=== PATIENT | female | born 1990 | race Caucasian/White ===

== ENCOUNTER 2018-04-22 06:25 | Day surgery (SDC) | payer OTHER ==
[2018-04-22] MEDS ORDERED: MIDAZOLAM 1 MG/ML 2 ML INJ (09:36)
[2018-04-22] MEDS ORDERED: GLYCOPYRROLATE 0.4 MG INJ ×2 (09:49→10:26)
[2018-04-22] MEDS ORDERED: ROCURONIUM 50 MG INJ (09:49)
[2018-04-22] MEDS ORDERED: LIDOCAINE 2% (SDV) 5 ML INJ (09:49)
[2018-04-22] MEDS ORDERED: NEOSTIGMINE 3 MG/3 ML SYRINGE (09:49)
[2018-04-22] MEDS ORDERED: SUCCINYLCHOLINE CHLORIDE 100 MG/5 ML SYG IV (09:49)
[2018-04-22] MEDS ORDERED: MEPERIDINE 100 MG INJ (09:49)
[2018-04-22] MEDS ORDERED: PROPOFOL 20 ML (09:49)
[2018-04-22] MEDS: METHYLENE BLUE 1% 10 ML INJ (10:14)
[2018-04-22] MEDS ORDERED: CEFAZOLIN 1 GM INJ (10:26)
[2018-04-22] MEDS ORDERED: ONDANSETRON 4 MG INJ (10:26)
[2018-04-22] MEDS ORDERED: hydrALAzine 20 MG INJ IV (10:30)
[2018-04-22] MEDS ORDERED: EPHEDrine SULFATE 50 MG/5 ML SYG IV (10:30)
[2018-04-22] MEDS ORDERED: FENTAnyl 50 MCG/ML VIAL IV ×3 (10:30)
[2018-04-22] MEDS ORDERED: ONDANSETRON 4 MG INJ IV (10:30)
[2018-04-22] MEDS ORDERED: MEPERIDINE 25 MG INJ IV (10:30)
[2018-04-22] MEDS ORDERED: LABETALOL HCL 20MG INJ IV (10:30)
[2018-04-22] MEDS ORDERED: OXYCODONE/ACETAMINOPHEN (5/325) TAB PO ×2 (10:30)
[2018-04-22] MEDS ORDERED: METOCLOPRAMIDE 10 MG INJ IV (10:30)
[2018-04-22] MEDS ORDERED: MIDAZOLAM 1 MG/ML 2 ML INJ IV (10:30)
[2018-04-22] MEDS ORDERED: HYDROmorphONE 1 MG/5 ML IV SYRINGE IV (10:30)
[2018-04-22] MEDS: HYDROmorphONE 1 MG/5 ML IV SYRINGE IV ×2 (10:51→11:04)
[2018-04-22] MEDS ORDERED: ACETAMINOPHEN 325 MG TAB PO (11:00)
[2018-04-22] MEDS: DIPHENHYDRAMINE 50 MG INJ IV (11:05)
[2018-04-22] MEDS ORDERED: HYDROCODONE/APAP (5/325) TAB (11:34)
[2018-04-22] MEDS: HYDROCODONE/APAP (5/325) TAB PO (11:43)
[2018-04-22] MEDS ORDERED: HYDROCODONE/APAP (5/325) TAB PO ×3 (12:30→16:30)
[2018-04-22] MEDS ORDERED: HYDROCODONE/APAP (10/325) TAB (12:45)
== END 2018-04-22 12:55 | disposition home or self-care (01) ==
LOC: SDS 06:25
DX: N94.6 Dysmenorrhea, unspecified (principal); N80.9 Endometriosis, unspecified
CPT/HCPCS: 49320; 86850; 86900; 86901